=== PATIENT | female | born 1995 ===

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

== ENCOUNTER 2017-09-27 21:50 | Emergency (ER) | payer MEDICAID ==
[2017-09-27 22:39] VITALS: BMI 35.4
[2017-09-27] MEDS ORDERED: Magnesium Sulfate 4 gm/100 ml 4 GM/100 ML BAG IVPB ONE (22:39)
[2017-09-27] MEDS ORDERED: Penicillin G Potassium 5 MU in Dextrose 5% In Water 50 ML IV ONE (22:39)
[2017-09-27] MEDS ORDERED: Betamethasone Soluspan 30 mg/5mL Inj Susp IM SCH (22:45)
[2017-09-27] MEDS ORDERED: Lactated Ringer's 1,000 ML IV SCH (22:45)
--- NOTE | 2017-09-27 23:22 | OBHP ---
Datetime: 09/27/2017 22:58 IP Adm Impression: , intrauterine ; Intact Membranes IP Adm Impression Other: Active Labor IP Admit Plan: Initiate labor protocol Admit Comment, IP Provider: 21 yo female G1 with an IUP at 30 weeks per pt's EDC of and scanty PNC Gestational Diabetic on Metformin 1000 mgs BID/FSBS Active Premature Labor with Advance dilatation/Intact Membranes/No bleding/Reassuring tracing 1 liter of LR given as an IV bolus, Received Celestone 12 mg x 1, 4 grams of Magnesium Sulfate as bolus and 50 mU PcnG for GBS prophylaxis. Dr. Loomis accepted the transfer to [facility] and pt left via ambulance bolus Pelvic Type - PN: Adequate Extremities - PN: Normal Abdomen - PN: Normal Back - PN: Normal Breast - PN: Not Done Lungs - PN: Normal Heart - PN: Normal Thyroid - PN: Normal Neurologic - PN: Normal HEENT - PN: Normal General - PN: Normal Presentation-Admit: Vertex FHR - Baseline A Provider: 160 Membranes, Provider: Intact Contraction Comments Provider: Q 3-4 minutes Gestation - Est Wks by US: 30.0 EGA AdmitDate IP: 30.0 Vital Signs Provider: Reviewed; Within Normal Limits IP Chief Complaint: Uterine contractions NICHD Variability Prov Fetus A: Moderate 6-25bpm NICHD Accel Fetus A IP Provider: [id number] FHR Category Provider Fetus A: Category I NICHD Decel Fetus A IP Provider: None Dilatation, Provider: 2-3 Effacement, Provider: 100% Station, Provider: -2 Genitourinary Exam: Normal DTRs - PN: Normal
[2017-09-28 04:23] VITALS: BP 117/60; PULSE 117; TEMP 98.2
== END 2017-09-27 23:35 | disposition short-term general hospital (02) ==
LOC: C.EROB 21:50
DX: O60.03 Preterm labor without delivery, third trimester (principal); Z3A.30 30 weeks gestation of pregnancy
CPT/HCPCS: 82948; 99284; J0702; J2540; J3475; J7120